=== PATIENT | male | born 1930 | race Caucasian/White ===

== ENCOUNTER 2017-03-09 10:11 | Outpatient (CLI) | payer MEDICARE ==
--- NOTE | 2017-03-09 12:02 | XRAY Report ---
THREE-VIEW CERVICAL SPINE: 03/09/2017 CLINICAL INDICATION: Neck pain. FINDINGS: AP, lateral, odontoid views of the cervical spine demonstrate degenerative disc and facet disease, with disk space narrowing worse at C5-6. There is no evidence of acute fracture or subluxat ion. The prevertebral soft tissues are unremarkable. IMPRESSION: DEGENERATIVE CHANGES. JOB #: [id number] EXT JOB #:[id number]
== END 2017-03-09 10:12 | disposition home or self-care (01) ==
LOC: DI 10:11
PROVIDERS: ATTEND Internal Medicine
DX: M50.30 Other cervical disc degeneration, unspecified cervical region (principal); M47.892 Other spondylosis, cervical region
CPT/HCPCS: 72040

== ENCOUNTER 2017-05-30 09:26 | Outpatient (CLI) | payer MEDICARE ==
[~2017-05-30 09:26] MED LIST: ALBUTEROL NEB 2.5 MG/3 ML INH SCH
== END 2017-05-30 09:27 | disposition home or self-care (01) ==
LOC: RT 09:26
PROVIDERS: ATTEND Internal Medicine
DX: J44.9 Chronic obstructive pulmonary disease, unspecified (principal)
CPT/HCPCS: 94060; J7613

== ENCOUNTER 2017-07-11 11:54 | Outpatient (CLI) | payer MEDICARE ==
--- NOTE | 2017-07-11 17:16 | CT Report ---
CT ABDOMEN WITHOUT CONTRAST: 07/11/2017 CLINICAL INDICATION: Pain. Axial CT images of the abdomen and pelvis were obtained without intravenous contrast. In accordance with CT protocol optimization, one or more of the following dose reduction techniques w ere utilized for this exam: automated exposure control, adjustment of mA and/or KV based on patient size, or use of iterative reconstructive technique. No previous CT is available for comparison. Limited evaluation of the lung bases is unremarkable. Allowing for the lack of intravenous contrast enhancement, the liver, spleen, pancreas, and adrenal glands are unremarkable. The kidneys demonstra te parapelvic cysts. No nephrolithiasis is seen. No bowel dilatation, free gas, or free fluid is pr esent. No abdominal adenopathy is appreciated. The gallbladder is not dilated. Osseous structures demonstrate degenerative changes. IMPRESSION: NO EVIDENT ETIOLOGY FOR PATIENT'S ABDOMINAL PAIN. JOB #: [id number] EXT JOB #:[id number]
== END 2017-07-11 11:55 | disposition home or self-care (01) ==
LOC: DI 11:54
PROVIDERS: ATTEND Internal Medicine
DX: R10.9 Unspecified abdominal pain (principal)
CPT/HCPCS: 74150

== ENCOUNTER 2018-02-13 09:47 | Outpatient (CLI) | payer MEDICARE ==
--- NOTE | 2018-02-13 18:24 | XRAY Report ---
Procedure Date: 02/13/2018 Accession Number: [id number] / [id number] Procedure: XR - Lumbar Spine 2 View CPT Code: FULL RESULT: EXAM: Lumbar Spine 2 View DATE: 02/13/2018 10:38 AM CLINICAL HISTORY: backache COMPARISON: CT abdomen and pelvis 07/11/2017 TECHNIQUE: 3 views. FINDINGS: Alignment: No spondylolisthesis or scoliosis. Bones: Five hxc-cij-onxjcms lumbar vertebral bodies are present. No fractures or bone lesions. Disks: Degenerative narrowing L1-2. Disk heights are otherwise maintained. Facets: Scattered degenerative changes most marked lower lumbar levels.. Sacroiliac Joints: Unremarkable. Soft Tissues: Unremarkable noting aortic calcification. IMPRESSION: Early degenerative change lumbar spine without superimposed acute findings.. RADIA
== END 2018-02-13 09:48 | disposition home or self-care (01) ==
LOC: DI 09:47
PROVIDERS: ATTEND Internal Medicine
DX: M51.36 Other intervertebral disc degeneration, lumbar region (principal); M47.896 Other spondylosis, lumbar region
CPT/HCPCS: 72100

== ENCOUNTER 2018-06-19 10:33 | Outpatient (CLI) | payer MEDICARE ==
--- NOTE | 2018-06-20 02:01 | XRAY Report ---
Reason: CHEST PAIN Procedure Date: 06/19/2018 Accession Number: [id number] / [id number] Procedure: XRN - Chest 2 View X-Ray CPT Code: 73365 FULL RESULT: EXAM: CHEST RADIOGRAPHY EXAM DATE: 06/19/2018 10:58 AM. CLINICAL HISTORY: CHEST PAIN. COMPARISON: 09/01/2015 11:23 AM. TECHNIQUE: 2 views. FINDINGS: Lungs/Pleura: No focal opacities evident. No pleural effusion. No pneumothorax. Normal volumes. Mediastinum: Heart and mediastinal contours are unremarkable. Other: None. IMPRESSION: Normal 2-view chest radiography. RADIA
== END 2018-06-19 10:34 | disposition home or self-care (01) ==
LOC: DI.N 10:33
PROVIDERS: ATTEND Internal Medicine
DX: R07.89 Other chest pain (principal)
CPT/HCPCS: 71046

== ENCOUNTER 2021-02-19 15:40 | Outpatient (CLI) | payer MEDICARE ==
[2021-02-19 16:37] LABS: ABSOLUTE RETICS # AUTO 0.051 10^6/uL (0.020-0.110); BASOPHILS # (AUTO) 0.1 10^3/uL (0.0-0.1); BASOPHILS % (AUTO) 1.1 %; EOSINOPHILS # (AUTO) 0.2 10^3/uL (0.0-0.7); EOSINOPHILS % (AUTO) 2.8 %; HCT - HEMATOCRIT 37.5 % (42.0-52.0); HGB - HEMOGLOBIN 12.1 g/dL (14.0-18.0); LYMPHOCYTES # (AUTO) 1.4 10^3/uL (1.5-3.5); LYMPHOCYTES % (AUTO) 21.4 %; MEAN CORPUSCULAR HEMOGLOBIN 28.5 pg (27.0-31.0); MEAN CORPUSCULAR HGB CONC 32.3 g/dL (32.0-36.0); MEAN CORPUSCULAR VOLUME 88.4 fL (80.0-94.0); MONOCYTES # (AUTO) 0.5 10^3/uL (0.0-1.0); MONOCYTES % (AUTO) 7.4 %; NEUTROPHILS # (AUTO) 4.4 10^3/uL (1.5-6.6); PLT - PLATELET COUNT 270 10^3/uL (130-450); RED BLOOD COUNT 4.24 10^6/uL (4.70-6.10); RED CELL DISTRIBUTION WIDTH 15.1 % (12.0-15.0); RETICULOCYTE COUNT % (AUTO) 1.19 % (0.5-2.3); WHITE BLOOD COUNT 6.5 x10^3/uL (4.8-10.8)
[2021-02-19 17:00] LABS: ALBUMIN 4.4 g/dL (3.2-5.5); ALBUMIN/GLOBULIN RATIO 1.6 (1.0-2.2); BILIRUBIN,TOTAL 0.5 mg/dL (0.2-1.0); CALCIUM 8.5 mg/dL (8.5-10.3); CREATININE 1.1 mg/dL (0.6-1.2); POTASSIUM 4.2 mmol/L (3.5-5.0); TOTAL PROTEIN 7.1 g/dL (6.7-8.2)
[2021-02-23 16:32] LABS: PATHOLOGIST SLIDE COMMENTS SEE SEPARATE REPORT
== END 2021-02-19 23:59 | disposition home or self-care (01) ==
LOC: LAB 15:40
PROVIDERS: ATTEND Internal Medicine Hematology & Oncology
DX: D64.9 Anemia, unspecified (principal)
CPT/HCPCS: 36415; 80053; 83010; 83615; 85025; 85045

== ENCOUNTER 2021-02-19 16:06 | Outpatient (CLI) | payer MEDICARE | END 2021-02-19 16:07 | disposition home or self-care (01) | LOC: LAB 16:06 | PROVIDERS: ATTEND Internal Medicine Hematology & Oncology | DX: D64.9 Anemia, unspecified (principal); Z53.9 Procedure and treatment not carried out, unspecified reason ==

== ENCOUNTER 2021-06-15 08:38 | Outpatient (CLI) | payer MEDICARE ==
--- NOTE | 2021-06-15 12:23 | Ultrasound Report ---
PROCEDURE: Abdomen Complete INDICATIONS: CHRONIC ANEMIA TECHNIQUE: Real-time scanning was performed of the abdominal and retroperitoneal organs, with image documentatio n. COMPARISON: None. FINDINGS: Liver: Liver is normal in size and homogeneous in echotexture. Gallbladder: Gallbladder sonographically normal. No gallstones. No gallbladder wall thickening with g allbladder wall measuring 1.1 mm. No pericholecystic fluid. No sonographic Burk sign. Biliary ducts: Intrahepatic bile ducts are non-dilated. Extrahepatic bile duct caliber measures 3.2 mm. Normal is 6-7 mm or less in diameter, or 10 mm or less post-cholecystectomy. Pancreas: Visualized portions of the pancreas are sonographically normal. Spleen: Spleen is normal in size and homogeneous in echotexture. Kidneys: Kidneys are normal in size and echotexture. Right kidney measures 11.3 cm long; left kidne y measures 12.0 cm long. No hydronephrosis or nephrolithiasis. No solid masses. Multiple bilateral parapelvic cysts. Aorta: Visualized aorta is normal in caliber at less than 3 cm. Iliacs: Proximal common iliac arteries are normal in caliber at less than 2.5 cm. IVC: Intrahepatic inferior vena cava is patent. Miscellaneous: No free abdominal fluid. IMPRESSION: 1. Bilateral renal parapelvic cysts. 2. Ultrasound otherwise within normal limits. Reviewed by: Liana Campos MD, PhD on 06/15/2021 12:22 PM PDT Approved by: Liana Campos MD, PhD on 06/15/2021 12:22 PM PDT Station ID: [id number]
== END 2021-06-15 08:39 | disposition home or self-care (01) ==
LOC: DI 08:38
PROVIDERS: ATTEND Internal Medicine Hematology & Oncology
DX: N28.1 Cyst of kidney, acquired (principal); D50.9 Iron deficiency anemia, unspecified